=== PATIENT | male | born 1990 | race Caucasian/White ===

== ENCOUNTER 2020-03-10 13:08 | Inpatient (IN) | payer OTHER ==
[~2020-03-10] VITALS: Ht 180.3 cm; Wt 68.0 kg
--- NOTE | 2020-03-10 18:05 | NUR ---
PT TRANSFERED FROM [facility]. ADMISSION HX AND ASSESSMENT COMPLETED. CONTACT PRECAUTION IMPLEMENTED. CONSULT CALLED. ST ON TELE. PRN PAIN MED GIVEN WITH PARTIAL RELIEF.
[2020-03-10 20:00] VITALS: BP 128/77
[2020-03-11 00:10] VITALS: BP 120/70
--- NOTE | 2020-03-11 04:16 | NUR ---
PT IS ALERT AND ORIENTED X4. COUGHING UP BLOOD LABS SENT. SPUTUM SENT. HINI1. UA SENT. LUNGS ARE CLEAR TO DIMINISHED. ABDOMEN IS FLAT BOWEL SOUNDS PRESENT. COMPLAINS OF PAIN IN ABDOMEN AREA. PAIN MEDS GIVEN NEEDED. EXPLAIN TREATEMENT PLAN WITH ANTIBIOTIC TREATMENT. TB TEST DONE ON LEFT ARM. EXPLAIN TO PT NEGATIVE PRESSURE ROOM. WILL CONTINUE TO MONITOR AND ASSSESS NEEDED PER NURSING
[2020-03-11 04:30] VITALS: BP 123/63
[2020-03-11 05:51] LABS: HEMATOCRIT 38.8 % (42.0-52.0); HEMOGLOBIN 13.4 gm/dL (14.0-18.0); MCH 31.2 pg (26.0-34.0); MCHC 34.4 g/dL (28.0-37.0); MCV 90.6 fL (80.0-100.0); RBC 4.29 mil/uL (4.50-6.00); RDW 12.2 % (10.5-14.5); WBC 24.4 thou/uL (4.0-11.0)
[2020-03-11 05:55] LABS: CALCIUM 8.9 mg/dL (8.5-10.1); POTASSIUM 3.5 mmol/L (3.5-5.1)
[2020-03-11 06:21] LABS: URINE BILIRUBIN NEGATIVE (Negative); URINE BLOOD TRACE (Negative); URINE CLARITY CLEAR; URINE COLOR YELLOW; URINE GLUCOSE-RANDOM* TRACE (Negative); URINE KETONES NEGATIVE (Negative); URINE LEUKOCYTES-REFLEX NEGATIVE (Negative); URINE NITRITE-REFLEX NEGATIVE (Negative); URINE PROTEIN (DIPSTICK) 2+ (Negative); URINE SPECIFIC GRAVITY 1.015 (1.005-1.035); URINE UROBILINOGEN >= 8.0 E.U./dl (0.2-1.0)
[2020-03-11 06:33] LABS: BACTERIA-REFLEX 1-9 Few /HPF (None Seen); CASTS None Seen /LPF (None Seen); CRYSTALS None Seen /LPF (None Seen); SQUAMOUS None Seen /LPF (0-3); URINE RBC 0-2 Rare /HPF (0-2); URINE WBC-REFLEX 0-5 Rare /HPF (0-5)
[2020-03-11 09:10] VITALS: BP 136/87
--- NOTE | 2020-03-11 10:18 | NUR ---
PT CARE ASSUMED AT 0700. A&Ox4. PT LIVING IN A HOTEL AND WILL NEED CASEMANAGMENT FOR POSSIBLE MEDICATION OR LIVING NEEDS. TB TEST WAS PLACED 03/10 2100 AND WILL NEED TO BE READ ON 03/12 AT 2100. PLACED ON L. STAR TATTOO. PT HAS BLOOD SPUTUM THAT HE IS COUGHING UP. IV PATENT WITH NO REDNESS OR EDEMA, IV ABX INFUSING. LUNGS SOUND DIMINISHED. UP AT PEDRO IN THE ROOM INDEPENDENTLY. CALL LIGHT IN REACH. PT NOT HAPPY ABOUT PAIN MEDICATION ON BOARD AND IS REQUESTING SOMETHING ELSE. DR. FLETCHER INFORMED WITH NO FURTHER ORDERS. WILL CONTINUE TO MONITOR.
[2020-03-11 19:57] VITALS: BP 136/80
[2020-03-12 03:05] LABS: HIV ANTIBODY Non Reactive (Non Reactive)
[2020-03-12 04:25] VITALS: BP 122/66
--- NOTE | 2020-03-12 05:15 | NUR ---
A/O X 4.UP INDEPENDENTLY.SHOWERED THIS SHIFT.PAIN FAIRLY CONTROLLED.GIRLFRIEND WANTS TO COME VISIT THIS MORNING BUT EXPLAINED TO HER THAT THE PATIENT IS IN ISOLATION.POC CONTINUED.
[2020-03-12 08:47] VITALS: BP 129/69
--- NOTE | 2020-03-12 13:41 | NUR ---
ASSESSMENT: CM REVIEWED CHART AND SPOKE WITH PATIENT. PT IS ALERT AND ORIENTED X4. PT WAS ADMITTED DUE TO HEMOPTYSIS. PTS RAPID COVID TEST WAS NEGATIVE. PT IS IN ENHANCED ISOLATION FOR TB RULE OUT AND SUSPECTED SEPTIC EMBOLI AND IS CURRENTLY ON IV ANBX. CM SPOKE WITH PT WHO REPORTS HE HAS BEEN LIVING AT [place] [id number] IN [place]. PT HAS HX OF RECREATIONAL DRUG USE:HEROIN. PT REPORTS HE IS WANTING TO LEAVE TODAY. CM DISCUSSED IT WOULD BE UP TO THE ATTENDING PHYSICIAN ONCE THEY FEEL PATIENT IS STABLE. CM ATTEMPTED TO OFFER PATIENT RESOURCES FOR DRUG ABUSE/PCP CLINICS BUT PT DECLINES THE NEED FOR THE INFORMATION. PT REPORTS HE IS CONNECTED WITH SHABANA MCKEON IN THE COMMUNITY WHO HELPS ASSIST THE HOMELESS AND PEOPLE WITH SUBSTANCE ABUSE. PT DECLINES ANY RESOURCES FROM CM AT THIS TIME. PT REPORTS ONCE HE DOES DISCHARGE HE WILL HAVE A RIDE HOME. CM WILL CONTINUE TO FOLLOW TO ASSIST NEEDED.
[2020-03-12 17:13] VITALS: BP 116/65
--- NOTE | 2020-03-12 17:31 | NUR ---
pt rested in bed most of the day minus trips to the restroom. room kept dark to facilitate rest since he said he didn't sleep well last night. said he is considering going to a rehab facility.
--- NOTE | 2020-03-12 20:09 | NUR ---
PATIENT HAS BEEN WANTING TO GO HOME PER DAY SHIFT NURSE AND JUST WAITING FOR FAMILY MEMBER,AROUND 194 PATIENT SIGNED AMA FORM.REMEDY DEVELOPER,INTERIOR PAINTER,NURSE PRACTITIONER AND ID DOCTOR WAS INFORMED AND AWARE.
[2020-03-13 01:06] LABS: HEP B SURFACE Ab(ANTI-HBS Reactive (()); HEPATITIS B SURFACE AG Negative (Negative); HEPATITIS C VIRUS AB <0.1 (0.0-0.9)
[2020-03-13 19:07] LABS: SYPHILIS AB Non Reactive (Non Reactive)
== END 2020-03-12 20:09 | disposition left against medical advice (07) | DRG 176 ==
LOC: ICU 13:08 → 2N 14:35
PROVIDERS: Hospitalist; Pediatrics; Specialist; ADMIT Internal Medicine; ATTEND Internal Medicine
DX: I26.90 Septic pulmonary embolism without acute cor pulmonale (principal); E46 Unspecified protein-calorie malnutrition; F41.9 Anxiety disorder, unspecified; F32.9 Major depressive disorder, single episode, unspecified; F19.10 Other psychoactive substance abuse, uncomplicated; J98.4 Other disorders of lung; Z20.828 Contact with and (suspected) exposure to other viral communicable diseases; Z53.29 Procedure and treatment not carried out because of patient's decision for other reasons; Z68.20 Body mass index [BMI] 20.0-20.9, adult; Z87.891 Personal history of nicotine dependence; Z28.21 Immunization not carried out because of patient refusal
CPT/HCPCS: 10081